=== PATIENT | male | born 1940 | race African-American/Black ===

== ENCOUNTER 2017-11-19 16:04 | Outpatient (CLI) | payer MEDICARE | END 2017-11-19 16:05 | disposition home or self-care (01) | LOC: BICRAD 16:04 | PROVIDERS: ATTEND Family Medicine | DX: R91.1 Solitary pulmonary nodule (principal); R91.8 Other nonspecific abnormal finding of lung field | CPT/HCPCS: 36415; 71046; 82565 ==

== ENCOUNTER 2017-11-20 13:06 | Outpatient (CLI) | payer MEDICARE ==
[2017-11-20] MEDS ORDERED: Iopamidol 370 76% 100 ML VIAL ONE (14:01)
== END 2017-11-20 13:07 | disposition home or self-care (01) ==
LOC: BICCT 13:06
PROVIDERS: ATTEND Family Medicine
DX: R91.1 Solitary pulmonary nodule (principal); R91.8 Other nonspecific abnormal finding of lung field; J43.2 Centrilobular emphysema; K76.89 Other specified diseases of liver; K76.0 Fatty (change of) liver, not elsewhere classified; N28.1 Cyst of kidney, acquired
CPT/HCPCS: 71260

== ENCOUNTER 2018-03-04 12:14 | Outpatient (CLI) | payer MEDICARE | END 2018-03-04 12:15 | disposition home or self-care (01) | LOC: BICCT 12:14 | PROVIDERS: ATTEND Internal Medicine Critical Care Medicine | DX: R91.1 Solitary pulmonary nodule (principal) | CPT/HCPCS: 71250 ==

== ENCOUNTER 2018-03-14 09:52 | Outpatient (CLI) | payer MEDICARE ==
--- NOTE | 2018-03-14 13:33 | PET ---
PET SCAN WITH CT ATTENUATION CORRECTION: HISTORY: Lung nodule. TECHNIQUE: PET scan with CT attenuation correction is performed from the base of the brain to the proximal thigh s following the intravenous administration of 10.8 mCi [id number]. COMPARISON: None. FINDINGS: HEAD AND NECK: No abnormal FDG localization. CHEST: No abnormal FDG localization in the mediastinum or hilum. Cavitary lesion in the right upper lobe is noted on CT for attenuation correction. No significant FDG avidity. There is a nodule adjacent to the left major fissure with a maximum SUV of 1.7. This nodule measures 1.[address] used for at tenuation correction demonstrates a 4 mm nodule adjacent to the right lateral right major fissure. T here is a 2nd similar nodule in the right upper lobe. ABDOMEN AND PELVIS: No abnormal FDG localization. There is a cyst in the right kidney noted on CT used for attenuation correction. OSSEOUS STRUCTURES: No abnormal FDG localization. IMPRESSION: 1. No abnormal fluorodeoxyglucose avidity associated with the nodules in the right upper lobe. 2. No significant fluorodeoxyglucose avidity associated with the nodule in the left lung adjacent to the major fissure. POS: TARIK
== END 2018-03-14 09:53 | disposition home or self-care (01) ==
LOC: PET 09:52
PROVIDERS: ATTEND Internal Medicine Critical Care Medicine
DX: R91.1 Solitary pulmonary nodule (principal)
CPT/HCPCS: 78815; A9552

== ENCOUNTER 2019-08-20 09:36 | Outpatient (CLI) | payer MEDICARE ==
--- NOTE | 2019-08-20 12:27 | CT ---
CT CHEST WITHOUT CONTRAST: Date: 08/20/19 Multiplanar reconstruction. INDICATION: Follow-up pulmonary nodule. Comparison made to chest CT of 03/04/18. FINDINGS: The oblong shaped nodule along the fissure in the left upper lobe is again seen. It does not appear s ignificantly changed in size, continuing to measure approximately 1.7 cm width in the axial plane. The nodular opacity in the right upper lobe peripherally associated with a pleural based bulla is aga in seen. The nodular component of this density has increased when compared to the prior exam and rey ures approximately 1.1 cm maximal dimension in the coronal plane. Lung cespedes otherwise remain clear. Mediastinum unremarkable. IMPRESSION: 1. Left upper lobe oblong shaped nodule along the fissure appears stable. 2. There is a pleural based bulla with surrounding stranding and a nodular opacity in the peripheral right upper lobe again seen. The nodular component has increased since prior exam, now measuring 1.1 cm. POS: TPC
== END 2019-08-20 09:37 | disposition home or self-care (01) ==
LOC: BICCT 09:36
PROVIDERS: ATTEND Internal Medicine Critical Care Medicine
DX: R91.1 Solitary pulmonary nodule (principal); R91.8 Other nonspecific abnormal finding of lung field
CPT/HCPCS: 71250

== ENCOUNTER 2019-08-28 11:24 | Outpatient (CLI) | payer MEDICARE ==
--- NOTE | 2019-08-28 15:52 | PET ---
PET CT: HISTORY: Solitary pulmonary nodule. TECHNIQUE: PET scanning with CT attenuation correction was performed from the base of the brain through the prox imal thighs following the intravenous administration of 11.1 mCi of [id number] in the rig ht hand. CORRELATION: 08/20/2019. COMPARISON: PET CT dated 03/14/2018. FINDINGS: There is hypermetabolic activity in the 17 mm nodule in the left upper lobe close to the fissure with an SUV of 3.8. The right upper lobe peripheral nodule demonstrates no abnormal FDG localization. No shon hypermetabolism is seen in the neck, chest, axillae, abdomen, or pelvis. No hypermetabolic liver, adrenal, or skeletal lesions are seen. There is increased FDG localization in the bridging osteophyte at the lateral aspect of L3-4 level. There is physiologic activity in the GI and tracts, the heart, and the visualized portions of the brain. The CT scan used for attenuation correction demonstrates no areas of pleural effusions or ascites. T here is prostatic enlargement and sigmoid diverticulosis. IMPRESSION: Findings are suspicious for left upper lobe lung malignancy. POS: FRANKIEH
== END 2019-08-28 11:25 | disposition home or self-care (01) ==
LOC: PET 11:24
PROVIDERS: ATTEND Internal Medicine Critical Care Medicine
DX: R91.1 Solitary pulmonary nodule (principal)
CPT/HCPCS: 78815; A9552

== ENCOUNTER 2019-09-17 08:02 | Day surgery (SDC) | payer MEDICARE ==
[2019-09-16 16:44] VITALS: BMI 28.4
[2019-09-17 08:22] LABS: #Basophils 0.1 thou/uL (0.0-0.2); #Eosinphils 0.2 thou/uL (0.0-0.7); #Monocytes 0.6 thou/uL (0.11-0.59); #Neutrophils 3.5 thou/uL (1.40-6.50); %Basophils 1.4 % (0.0-1.0); %Eosinophils 3.7 % (0.0-10.0); %Lymphocytes 31.2 % (21.0-51.0); %Neutrophils 54.7 % (42.0-75.0); Hemoglobin 12.4 g/dL (14.0-18.0); Mean Corpuscular HGB CONC 31.6 g/dL (32.0-36.0); Mean Corpuscular Hemoglobin 31.4 pg (27.0-31.0); Mean Corpuscular Volume 99.1 fL (78.0-98.0); Mean Platelet Volume 8.4 fL (7.4-10.4); Platelet Count 155 thou/uL (130-400); RBC Distribution Width 13.6 % (11.5-14.5); Red Blood Cell (RBC) Count 3.96 mill/uL (4.70-6.10); White Blood Cell (WBC) Count 6.4 thou/uL (4.8-10.8)
[2019-09-17 08:29] LABS: PTT 30.7 SEC (22.9-36.1); Prothrombin Time 12.9 SEC (12.0-14.7)
--- NOTE | 2019-09-17 11:32 | CT ---
LIMITED CT THORAX NONCONTRAST: CLINICAL HISTORY: Biopsy preparation, left upper lobe pulmonary nodule. FINDINGS: A percutaneous approach to the left upper lobe pulmonary nodule is not obtainable due to persistence of overlying osseous structures of the chest and left shoulder. This was conveyed to the patient. IMPRESSION: Limited CT imaging of the chest, noncontrast, in attempt for biopsy preparation although percutaneous route to the left upper lobe nodule was not obtainable due to persistence of overlying osseous structures of the left chest wall and left shoulder girdle. Transcribed Date/Time: 09/17/2019 11:38 AM
== END 2019-09-17 11:20 | disposition home or self-care (01) ==
LOC: CT 08:02
PROVIDERS: ATTEND Internal Medicine Critical Care Medicine
DX: R91.1 Solitary pulmonary nodule (principal); E11.9 Type 2 diabetes mellitus without complications; I10 Essential (primary) hypertension; J44.9 Chronic obstructive pulmonary disease, unspecified; Z88.5 Allergy status to narcotic agent; Z87.891 Personal history of nicotine dependence
CPT/HCPCS: 36415; 76380; 85025; 85610; 85730

== ENCOUNTER 2020-06-29 11:26 | Outpatient (CLI) | payer MEDICARE ==
--- NOTE | 2020-06-29 13:09 | RAD ---
PA AND LATERAL CHEST: Date: 06/29/2020 INDICATION: Shortness of breath. COMPARISON: Chest radiograph dated 03/25/2018. FINDINGS: There are new interstitial and air space opacities within the left lower lobe suspicious for pneumoni a. There is some mild subsegmental volume loss within the right lower lobe. The nodular opacity withi n the left upper lobe corresponds to the known left upper lobe pulmonary nodule that was suspicious f or malignancy on prior PET CT. 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 No acute osseous abnormality is evident. IMPRESSION: 1. Persistent left upper lobe pulmonary nodule suspicious for malignancy on a prior PET CT dated . CT follow-up is recommended. 2. New air space opacity in the left lower lobe suspicious for pneumonia. POS: H
== END 2020-06-29 11:27 | disposition home or self-care (01) ==
LOC: BICRAD 11:26
PROVIDERS: ATTEND Internal Medicine Critical Care Medicine
DX: R06.00 Dyspnea, unspecified (principal); R91.1 Solitary pulmonary nodule; R91.8 Other nonspecific abnormal finding of lung field
CPT/HCPCS: 71046

== ENCOUNTER 2020-07-13 08:48 | Outpatient (CLI) | payer MEDICARE ==
--- NOTE | 2020-07-13 11:29 | PET ---
Exam: PET scan with CT attenuation correction COMPARISON: 08/28/2019. CORRELATION: Chest CT 08/20/2019. HISTORY: Lung cancer. Left upper lobe. Staging study. TECHNIQUE: PET scan with CT attenuation correction is performed from the base of the brain to the pro ximal thighs following the intravenous administration of 10.6 mm of [id number]. FINDINGS: Head and neck: No abnormal FDG localization. Chest: No abnormal FDG localization in the mediastinum or axilla. CT used for attenuation correction demonstrates a spiculated mass in the right upper lobe measuring 1.4 x 0.8 cm. Maximum SUV is 1.2. Correlation with a chest CT from 08/20/2019 suggests residual scarring from a previous cavitary focus . Cavitary focus has decreased in size. No additional abnormal densities on the CT used for attenuation correction in the right lung. There is dependent atelectatic change. In the left lung, th ere is a soft tissue mass with increased FDG avidity, measuring 2.4 x 0.9 cm. Mass has a maximum SUV of 3.8. Previously, maximum SUV was 2.3. The mass has slightly increased in size when compared to the previous CT. Previously, this mass measured 1.8 x 1.0 cm. No additional suspicious masses or nodules in the left lung. Abdomen and Pelvis: No abnormal FDG localization. CT used for attenuation correction demonstrates an exophytic right renal cyst. There is a mildly enlarged prostate gland. Osseous structures: There is no abnormal FDG localization. IMPRESSION: 1. FDG avidity involving a soft tissue mass in the posterior left upper lobe, abutting the major fiss ure. There has been slight interval increase in size. 2. FDG avidity is not appreciated in a soft tissue density involving the right upper lobe. Previous c avitary focus has decreased in size. Scar tissue is favored. Transcribed Date/Time: 07/13/2020 12:00 PM
== END 2020-07-13 08:49 | disposition home or self-care (01) ==
LOC: PET 08:48
PROVIDERS: ATTEND Radiology Radiation Oncology
DX: C34.12 Malignant neoplasm of upper lobe, left bronchus or lung (principal); M79.89 Other specified soft tissue disorders; R93.89 Abnormal findings on diagnostic imaging of other specified body structures
CPT/HCPCS: 78815; A9552